=== PATIENT | male | born 1945 | race Caucasian/White ===

== ENCOUNTER 2020-07-12 06:38 | Observation (INO) | payer MEDICARE ==
[2020-07-09 08:30] VITALS: BMI 33.0
[~2020-07-12 06:38] MED LIST: DEXAMETHASONE SOD PHOSPHATE 4 MG/ML 1 ML VIAL IV ONE; LACTATED RINGERS 1,000 ML IV SCH; LIDOCAINE 1% (10MG/ML) FOR IV START INTRADERMA PRN; ONDANSETRON 4 MG/2 ML VIAL IVP ONE; SODIUM CHLORIDE 0.9% 1,000 ML IV SCH
[2020-07-12] MEDS ORDERED: SODIUM CHLORIDE 0.9% 1,000 ML IV ONE (07:20)
[2020-07-12] MEDS ORDERED: PHENYLEPHRINE-0.9% NACL SYG 1,000 MCG/10 ML SYRINGE ONE (08:44)
[2020-07-12] MEDS ORDERED: MIDAZOLAM 2 MG/2 ML VIAL ONE (08:44)
[2020-07-12] MEDS ORDERED: SUCCINYLCHOLINE CHLORIDE VIAL 200 MG/10 ML VIAL IV ONE (08:44)
[2020-07-12] MEDS ORDERED: ROCURONIUM 10 MG/ML (5 ML VIAL) IV ONE (08:44)
[2020-07-12] MEDS ORDERED: fentaNYL (PF) 50 MCG/ML 2 ML AMP ONE (08:44)
[2020-07-12] MEDS ORDERED: PROPOFOL 10 MG/ML 20 ML VIAL IV ONE (08:44)
[2020-07-12] MEDS ORDERED: GLYCOPYRROLATE 0.2 MG/ML 2 ML VIAL ONE (08:44)
[2020-07-12] MEDS ORDERED: ONDANSETRON 4 MG/2 ML VIAL ONE (08:44)
[2020-07-12] MEDS ORDERED: NEOSTIGMINE 1 MG/ML 10 ML VIAL ONE (08:44)
[2020-07-12] MEDS ORDERED: DEXAMETHASONE SOD PHOSPHATE 4 MG/ML 1 ML VIAL ONE (08:44)
[2020-07-12] MEDS ORDERED: PROTAMINE SULFATE 10 MG/ML 5 ML VIAL IV ONE (08:44)
[2020-07-12] MEDS ORDERED: LIDOCAINE 1% INJ 10MG/ML (20 ML MDV) ONE (08:44)
[2020-07-12] MEDS ORDERED: ISOPROTERENOL 250 MCG/1.25 ML SYR IV ONE (08:44)
[2020-07-12] MEDS ORDERED: HEPARIN SODIUM,PORCINE 10,000 UNIT/ML 1 ML VIAL ONE (08:44)
[2020-07-12] MEDS ORDERED: LIDOCAINE 1% INJ 10MG/ML (20 ML MDV) SQ ONE (09:35)
[2020-07-12] MEDS ORDERED: HEPARIN SOD,PORK IN 0.45% NACL 25,000 UNIT in 0.45% NACL 1 250ML.BAG IV ONE (09:40)
[2020-07-12] MEDS ORDERED: IOPAMIDOL-370 100ML BTL INJ ONE (11:29)
[2020-07-12] MEDS ORDERED: HEPARIN SODIUM (1,000 UNIT/ML) 1,000 UNIT in SODIUM CHLORIDE 0.9% 1,000 ML IRRIGATION ONE (11:30)
[2020-07-12] MEDS ORDERED: ACETAMINOPHEN TAB 325 MG TAB PO PRN (14:08)
[2020-07-12] MEDS ORDERED: ACETAMINOPHEN IV (For NPO) 1,000 MG in EMPTY BAG 1 BAG IVPB ONE (15:00)
--- NOTE | 2020-07-12 15:10 | P.EPPROC ---
- EP Procedure Note Electrophysiology Procedure Note: PROCEDURE A. fib ablation with Pulmonary vein isolation (PVI) Linear ablation in the LA septum Linear ablation in the roof of the left atrium Linear ablation in the mitral annulus DIAGNOSIS Atrial fibrillation, symptomatic, refractory to therapy Persistent Failed flecainide RESULT No left atrial appendage mass seen on intracardiac echo Successful A. fib ablation/pulmonary vein isolation of all veins using cryo- ablation Complete entrance block in all 4 veins confirmed No evidence for phrenic nerve injury Linear ablation in the septum the left atrium along complex fractionated electrograms Linear ablation in the roof of the left atrium Linear ablation the mitral isthmus Esophageal deflection YES Electrical cardioversion with a synchronized shock across the chest YES PROCEDURE DETAILS Patient was brought to the EP lab in a fasting state. Written informed consent was obtained prior to the procedure. Procedure performed under general anesthesia After initial muscle relaxant use, muscle relaxants were not given thereafter in order to assess phrenic nerve during procedure. Patient prepped and draped as per protocol Full cryo-set up with standard preparation of the cryoablation tools done. Femoral Venous access obtained on the right and left groins Venous and arterial Sheaths placed. Diagnostic catheters for the high right atrium, phrenic nerve stimulation and pacing, His bundle, RV and coronary sinus placed Intracardiac echo catheter placed. Long sheath placed in the right atrium Left and right transseptal catheterization performed under intracardiac echo guidance. Intravenous heparin with aCT above 300 Later, catheter positioning and balloon positioning in the left atrium, under intracardiac echo guidance Femoral arterial line placed for hemodynamic monitoring and sampling Diagnostic EP study with Drug infusion Coronary sinus pacing and recording Baseline measurements Sinus cycle length 863 ms, OH interval 187 ms, QRS 82 ms and QT 378 ms AH 78 ms and HV interval 54 minutes Transseptal catheterization performed RA pressure 21/16/18 LA pressure 34/13/23 Transseptal catheterization performed with standard sheath. The cryoablation sheath was then placed with an over the wire exchange without any acute complications. All 4 pulmonary veins were isolated in the following sequence: Left superior followed by left inferior followed by right superior followed by right inferior The cryo-ablation balloon was placed at the os of each vein 1.5 mL of IV dye was injected to confirm an occluded vein Goal during cryoablation was to achieve complete occlusion of the pulmonary vein, achieve -30 degrees C at 30 seconds and achieve -40 degrees C at 60 seconds and a time to effect of less than 60-90 seconds, . If not the balloon was repositioned to obtain this result After completion of Cryoblation with durations from 180-240 seconds, entrance block was confirmed with the Attain circular catheter in a roving fashion around the antrum of the pulmonary veins Phrenic nerve pacing was performed from the SVC, right innominate vein area and diaphragm voltage was monitored. Diaphragmatic contractions were also monitored manually for strength of contraction. Parameter goals for each cryo freeze Complete occlusion of the appropriate vein -30 degrees C by 30 seconds -40 degrees C by 60 seconds Minimum between minus 40-55 degrees C Thaw time greater than 10 seconds Balloon visualized by intracardiac echo The esophagus was intubated. Esophageal Temperature monitoring with a CIRCA catheter formed. Esophageal deflection for hypothermia of the esophagus below 30 degrees C Left superior pulmonary vein Complete isolation, entrance block Left inferior pulmonary vein Complete isolation, entrance block Right superior pulmonary vein, during phrenic nerve pacing Complete isolation, entrance block Right inferior pulmonary vein, during phrenic nerve pacing Complete isolation, entrance block At the end of the procedure the Achieve catheter was once again used to check for entrance block Phrenic nerve stimulation was performed to confirm diaphragmatic stimulation the end of the procedure Cine fluoroscopy was performed at the very end of the procedure to confirm movement of both diaphragms with inspiration and expiration RF ablation catheter placed in the left atrium 3-D electrograms mapping of the left atrium performed Voltage mapping performed Coronary veins are completely isolated Fractionated electrograms noted in the septum Linear ablation and septum performed from the upper anterior Isuprel pulmonary vein down to the right inferior pulmonary vein This segment of the septum posterior to this was completely isolated Linear ablation in the roof was performed. There was about a 1-1.5 cm narrow isthmus noted and complete RF ablation was performed Scar mapping in sinus rhythm showed complete line of block with non-capture There was relative organization of atrial fibrillation and a very rapid signals in the mitral isthmus Different decision was made to perform ablation within the mitral isthmus A complete anatomic line of block was made. A contact force of around 7-15 g, power of 35-40 W However when interrogated in sinus rhythm complete block could not be achieved and there appeared to be a gap In the mitral annulus region Widely split potentials along the region closer to the left inferior pulmonary vein Electrical cardioversion was performed at the end of the procedure At the end of the procedure the patient was extubated Heparin was reversed Venous sheaths were removed and hemostasis assured PROCEDURES PERFORMED Diagnostic EP study CS pacing and recording Left and right transseptal catheterization 3D mapping) Intracardiac echocardiography Pulmonary vein isolation with transseptal and comprehensive EPS, 24022 Left atrial roof line, +[id number] Linear ablation, left atrium, +44110 Linear ablation mitral annulus, +12743 Electrical cardioversion with a synchronized shock across the chest [id number]
[2020-07-12] MEDS: HYDROcodone/APAP 5-325MG 1 EACH TAB PO PRN (17:43)
[2020-07-12] MEDS: APIXABAN 5 MG TAB PO SCH (20:55)
[2020-07-12] MEDS: METOPROLOL TARTRATE 50 MG TAB PO SCH (20:55)
[2020-07-13] MEDS: HYDROcodone/APAP 5-325MG 1 EACH TAB PO PRN (01:58)
[2020-07-13] MEDS: SODIUM CHLORIDE 0.9% 1,000 ML IV SCH ×3 (05:47→22:00)
--- NOTE | 2020-07-13 08:09 | P.DS ---
Providers Attending physician: Cale Rodriguez Primary care physician: Corky Calvo [facility] Course: Patient is lying comfortably in bed. No orthopnea PND He has no chest discomfort that he has a sore throat and he has a cough and astatic clear his throat He had bleeding from the right groin and a repeat FemStop was placed The right groin is very minimally puffy but there is minimal tenderness at the venous puncture site no tenderness in the arterial puncture site no definite swelling Heart sounds are regular and normal Breath sounds fine crackles at the bases No lower extremity edema Impression Persistent atrial fibrillation Status post PVI, linear ablation the septum LA roof and mitral isthmus Patient required electrical cardioversion for relatively organized atrial fibrillation He did not otherwise into a mappable atrial tachycardia Plan Continue current medications without any changes including anticoagulation Intermittent bedrest with right groin pressure application with a FemStop today Likely discharge if there is no further bleeding later today Follow Dr. Rodriguez in 7-10 days Incentive spirometer 1 dose of by mouth Lasix 40 mg daily Plan - Discharge Summary Discharge Rx Participant: No New Discharge Prescriptions: Continue Spironolactone [Aldactone] 25 mg PO DAILY Losartan [Cozaar] 25 mg PO DAILY Atorvastatin [Lipitor] 20 mg PO DAILY Apixaban [Eliquis] 5 mg PO BID Metoprolol Tartrate [Lopressor] 50 mg PO BID Glucosamine Sulfate 2,000 mg PO DAILY Discharge Medication List Apixaban [Eliquis] 5 mg PO BID 11/21/13 [History] Atorvastatin [Lipitor] 20 mg PO DAILY 11/21/13 [History] Losartan [Cozaar] 25 mg PO DAILY 11/21/13 [History] Spironolactone [Aldactone] 25 mg PO DAILY 11/21/13 [History] Glucosamine Sulfate 2,000 mg PO DAILY 07/09/20 [History] Metoprolol Tartrate [Lopressor] 50 mg PO BID 07/09/20 [History] Follow up Appointment(s)/Referral(s): Cale Rodriguez MD [STAFF PHYSICIAN] - 2 Weeks (Follow-up with Dr. Rodriguez/Liliana Zelaya in 2 weeks) Activity/Diet/Wound Care/Special Instructions: Post EP study - Ablation instructions 1. Keep access sites dry for 2 days. 2. No heavy lifting or straining for 2 days. 3. Avoid bending the hips repeatedly for 2 days. 4. You may go up and down stairs slowly Call if the following is noted 1. Bleeding, increasing swelling or pain at the access sites. 2. Increasing chest discomfort, especially upon taking a deep breath. 3. Increasing shortness of breath, at rest or with exertion. 4. Undue cough / phlegm 5. Difficulty or pain while swallowing. 6. Pain or change in color in the extremities. 7. Fever, chills, rigors. 8. Increasing headache or neurologic symptoms. 9. Dizziness, fainting, palpitations No change in medications Continue apixaban Discharge Disposition: HOME SELF-CARE
[2020-07-13] MEDS ORDERED: FUROSEMIDE 40 MG TAB PO STA (08:47)
[2020-07-13] MEDS: ATORVASTATIN 20 MG TAB PO SCH (09:03)
[2020-07-13] MEDS: METOPROLOL TARTRATE 50 MG TAB PO SCH ×2 (09:03→21:54)
[2020-07-13] MEDS: SPIRONOLACTONE 25 MG TAB PO SCH (09:04)
[2020-07-13] MEDS: LOSARTAN 25 MG TAB PO SCH (09:04)
[2020-07-13] MEDS: APIXABAN 5 MG TAB PO SCH ×2 (09:04→21:54)
[2020-07-14] MEDS: SPIRONOLACTONE 25 MG TAB PO SCH (07:25)
[2020-07-14] MEDS: METOPROLOL TARTRATE 50 MG TAB PO SCH (07:25)
[2020-07-14] MEDS: LOSARTAN 25 MG TAB PO SCH (07:25)
[2020-07-14] MEDS: ATORVASTATIN 20 MG TAB PO SCH (07:25)
[2020-07-14] MEDS: APIXABAN 5 MG TAB PO SCH (07:25)
[2020-07-14 07:28] VITALS: BP 118/69; RESP 16; TEMP 98.6
[2020-07-14 09:05] VITALS: PULSE 79
--- NOTE | 2020-07-14 17:51 | DS ---
DISCHARGE SUMMARY DATE OF ADMISSION: 07/13/2020 DATE OF DISCHARGE: 07/14/2020. DIAGNOSIS: Persistent atrial fibrillation. PROCEDURE PERFORMED: From bilateral groin approach pulmonary vein isolation and related procedures by Dr. Rodriguez. This patient was brought in for elective pulmonary vein isolation procedure that was performed from both groins. Post procedure, he had some hematoma which has settled down. He is asymptomatic, maintaining sinus rhythm. Vitals are stable. There is no JVD or carotid bruit. S1-S2 heard normally. No significant murmurs. Lungs are clear. Abdomen is soft. Lower extremities reveal palpable pulses. The right groin has a small area of ecchymosis, no significant hematoma, no bruit. Left groin is clean and dry with a good pulse. This patient is maintaining sinus rhythm. He can be discharged today. Discharge instructions regarding activity, diet and medications were given. He will see Dr. Rodriguez in 1 week. MMODL / IJN: [id number] /
== END 2020-07-14 12:59 | disposition home or self-care (01) ==
LOC: CATHEP 06:38 → 6NMEDSUR 14:10 → CATHEP 07-14 07:25 → 6NMEDSUR 07-14 07:25
PROVIDERS: ADMIT Internal Medicine Clinical Cardiac Electrophysiology; ATTEND Internal Medicine Clinical Cardiac Electrophysiology
DX: I48.19 Other persistent atrial fibrillation (principal); I11.0 Hypertensive heart disease with heart failure; I42.9 Cardiomyopathy, unspecified; G47.33 Obstructive sleep apnea (adult) (pediatric); E78.5 Hyperlipidemia, unspecified; I77.9 Disorder of arteries and arterioles, unspecified; F17.210 Nicotine dependence, cigarettes, uncomplicated; Z20.822 Contact with and (suspected) exposure to COVID-19; Z79.01 Long term (current) use of anticoagulants; Z79.899 Other long term (current) drug therapy
CPT/HCPCS: 93623; 93662; 93613; 93656; 93657; 87635; G0378; C1759; C1769 ×4; C1894 ×3; C1730 ×2; C1893; C1733; C1766; C1732; J2250; J0330; J2720; J1644 ×3; J1100; J2710; J2405; J2001; J3010; J2370; J2704; Q9967

== ENCOUNTER → 2022-04-03 | Outpatient (CLI) | payer MEDICARE ==
--- NOTE | 2022-04-03 15:41 | P.SLEEP ---
History of Present Illness DATE: 04/03/2022 CONSULTATION/NEW PATIENT EVALUATION HISTORY OF PRESENT ILLNESS/SLEEP-WAKE EVALUATION: 76-year-old gentleman had been evaluated in the sleep center for obstructive sleep apnea hypopnea syndrome. Patient has history of obstructive sleep apnea-hypopnea syndrome for more than 10 years. Last time she was seen in our institution according to patient in the 2017. He continued to use CPAP equipment but presently has multiple awakenings from sleep well using his CPAP. SLEEP SCHEDULE: Usually sleep schedule from 9 PM to 6 AM 7 days a week. FALLING ASLEEP: Occasionally patient has difficulties to fall asleep, no TV in bedroom. DURING SLEEP: Patient wakes up from sleep 5 times with 5 episodes of nocturia wh ile using his CPAP. No history of hypnogogical hallucinations, sleep paralysis, or cataplexy. DURING THE DAY/WAKE STATE: In the morning patient wake up tired, falling asleep during the day. [place] sleepiness scale is 3. Patient takes 1 nap at 1 PM. She drinks 2 cups of coffee during the day. PAST MEDICAL HISTORY: Hypertension, atrial fibrillation. PAST SURGICAL HISTORY: Cardiac ablation in 2020 for atrial fibrillation, surgery for GERD. MEDICATIONS: Eliquis 5 mg twice a day, atorvastatin 20 mg once a day, spironolactone 25 mg once a day, losartan 50 mg once a day. SOCIAL HISTORY: Negative for smoking, alcohol consumption occasional. FAMILY HISTORY: Heart problems. REVIEW OF SYSTEMS: Multiple awakenings from sleep. No fevers. No double vision. No recent chest pain. No shortness of breath. No abdominal pain. No bleeding episodes. No blood in urine. No seizure episodes. PHYSICAL EXAMINATION: GENERAL: A pleasant patient without any distress. VITAL SIGNS: BP 144/80 , HR 74 , RR 18 , weight 248.0 pounds, height 5 foot 8.5 inches, body mass index 37.1 . HEENT: PERRLA, EOMI. Evaluation of oropharynx showed tongue protrudes midline, low position of soft palate Mallampati 4. NECK: Supple. No JVD. Thyroid is not palpable. 19.75 inches in circumference. LUNGS: Clear to percussion and to auscultation. Good air exchange. No wheezing or rhonchi. HEART: S1, S2 regular. No murmurs, gallops or rubs. ABDOMEN: Soft and nontender. Bowel sounds are present. No organomegaly appreciated. EXTREMITIES: No clubbing or cyanosis. WATER FILTERER HELPER: Awake, alert, and oriented x3. Cranial nerves 2 to 7 intact. There is no fasciculation or atrophy noted. No focal deficits observed. ASSESSMENT: 1. Obstructive sleep apnea hypopnea syndrome for many years. Patient increased his weight on 28 pounds since previous evaluation in sleep center. Multiple awakenings from sleep while on treatment with CPAP. CPAP unit more than 5-year-old. Extremely low position of soft palate, wide neck. 2. Obesity body mass index 37.1. 3. Hypertension. 4. History of atrial fibrillation, status post cardiac ablation procedure. 5 status post surgery for GERD. PLAN: 1. To get results of previous sleep studies. 2. CPAP/BiPAP titration for correction of obstructive sleep apnea-hypopnea syndrome at the present time. 3. Preferable position during sleep on the side. 4. No driving if patient feels any sleepiness. Patient is aware of civil and criminal liability for unsafe driving. 5. Sleep hygiene with regular sleep time for at least 7.5-8 hours. 6. Watching and losing weight. 7. Prescription for new CPAP equipment after sleep study. Thank you very much for referring this patient for consultation. Sincerely, Magen Bruner MD, PhD, FAASM. 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" History of Any Multi-Drug Resistant Organisms: None Reported Past Surgical History: Heart Catheterization, Tonsillectomy Additional Past Surgical History / Comment(s): CARDIOVERSION, had 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, rt eye cataract sx Past Anesthesia/Blood Transfusion Reactions: No Reported Reaction Past Psychological History: No Psychological Hx Reported Smoking Status: Former smoker Past Alcohol Use History: Occasional Additional Past Alcohol Use History / Comment(s): QUIT SMOKING 1969, STARTED APPROX 1956 Past Drug Use History: None Reported - Past Family History Father Family Medical History: Cancer Mother Family Medical History: No Reported History Medications and Allergies Home Medications Medication Instructions Recorded Confirmed Type Apixaban [Eliquis] 5 mg PO BID 11/21/13 07/12/20 History Atorvastatin [Lipitor] 20 mg PO DAILY 11/21/13 07/12/20 History Losartan [Cozaar] 25 mg PO DAILY 11/21/13 07/12/20 History Spironolactone [Aldactone] 25 mg PO DAILY 11/21/13 07/12/20 History Glucosamine Sulfate 2,000 mg PO DAILY 07/09/20 07/12/20 History Metoprolol Tartrate [Lopressor] 50 mg PO BID 07/09/20 07/12/20 History Allergies Allergy/AdvReac Type Severity Reaction Status Date / Time No Known Allergies Allergy Verified 07/12/20 07:38 Sleep Note - Sleep Note Sleep Note: Temperature: Pulse Rate: Respiratory Rate: Blood Pressure: SpO2: Height: Weight: BMI: Neck Circumference:
== END ==
LOC: SLEEP 14:37
PROVIDERS: ATTEND Internal Medicine
DX: G47.33 Obstructive sleep apnea (adult) (pediatric) (principal); Z99.89 Dependence on other enabling machines and devices; E66.9 Obesity, unspecified; Z68.37 Body mass index [BMI] 37.0-37.9, adult; I11.0 Hypertensive heart disease with heart failure; I48.91 Unspecified atrial fibrillation; Z87.19 Personal history of other diseases of the digestive system; Z87.891 Personal history of nicotine dependence
CPT/HCPCS: 99211

== ENCOUNTER → 2024-01-06 | Outpatient (CLI) | payer MEDICARE ==
[2024-01-06 15:26] VITALS: BP 134/69; PULSE 74; RESP 16; TEMP 97.8
--- NOTE | 2024-01-06 18:51 | P.PROGSL ---
Subjective DATE: 01/06/2024 FOLLOW UP VISIT. Patient with obstructive sleep apnea hypopnea syndrome return to sleep center for follow-up visit. Information from previous visit have been reviewed. Patient is using PAP equipment every night for the whole night, getting PAP supplies in time. The patient does not have significant problems with the mask, PAP unit and humidification. [place] sleepiness scale is 7, which is normal. I checked information from PAP unit. PAP unit pressure 6-10, average 10 cm H2O. Usage is 100% for more then 4 hours, average 8.6 hours per night. Leak is 17 l/m, which is in acceptable range. Apnea Hypopnea Index is 1.0, which is normal. MEDICATIONS have been reviewed, please see below. During physical exam: GENERAL: A pleasant patient without any distress. VITAL SIGNS: Please see below, weight is 144 lbs. HEENT: PERRLA, EOMI.low position of soft palate, Mallapati 4 . NECK: Supple. No JVD. LUNGS: Clear to percussion and to auscultation. Good air exchange. No wheezing or rhonchi. HEART: S1, S2 regular. ABDOMEN: Soft and nontender.[] EXTREMITIES: No clubbing or cyanosis. FIRST LINE PRODUCTION SUPERVISOR: Awake, alert, and oriented x3. No focal deficit. Impressions: 1. Obstructive sleep apnea-hypopnea syndrome. Patient demonstrated great compliance with treatment, benefiting from treatment. 2. Obesity, body mass index 37.0, patient lost 4 pounds comparing with the previous visit. 3. Hypertension. 4. History of atrial fibrillation, status post cardiac ablation. 5. Status post surgical treatment for GERD. Plan: 1. Continue using PAP equipment every night for the whole night. 2. Sleep hygiene with regular time in bed for at least 7.5-8 hours 3. PAP unit should stay lower then position of the head. 4. Advised patient to remove all remaining water from humidifier canister daily and make it dry after each usage. Refill canister with fresh distilled water before each usage. 5. Watching weight. 6. Precautions related to driving. No driving if feel any sleepiness. 7. I will maintain prescription for PAP supplies including mask, tube, filters. 8. Follow up visit in 8 months or earlier if patient has any problems. Thank you very much for allowing me to participate in the management of your patient. Magen Bruner MD, PhD, FAASM. Diplomat of [employer], Sleep Medicine Board by [employer] [place] [employer] [facility] [place] Objective - Vital Signs Vital Signs: Vital Signs Temp 97.8 F 01/06/24 15:25 Pulse 74 01/06/24 15:25 Resp 16 01/06/24 15:25 BP 134/69 01/06/24 15:25 Pulse Ox 98 01/06/24 15:25 FiO2 Intake & Output 01/05/24 01/06/24 01/06/24 18:59 06:59 18:59 Weight 110.677 kg Home Medications: Home Medications Medication Instructions Recorded Confirmed Type Apixaban [Eliquis] 5 mg PO BID 11/21/13 01/06/24 History Atorvastatin [Lipitor] 20 mg PO DAILY 11/21/13 01/06/24 History Losartan [Cozaar] 25 mg PO DAILY 11/21/13 01/06/24 History Spironolactone [Aldactone] 25 mg PO DAILY 11/21/13 01/06/24 History Glucosamine Sulfate 2,000 mg PO DAILY 07/09/20 07/12/20 History Metoprolol Tartrate [Lopressor] 50 mg PO BID 07/09/20 07/12/20 History
== END ==
LOC: 3 N SLEEP 15:03
PROVIDERS: ATTEND Internal Medicine
CPT/HCPCS: 99212

== ENCOUNTER → 2024-09-14 | Outpatient (CLI) | payer MEDICARE ==
[2024-09-14 11:07] VITALS: BP 139/77; PULSE 70; RESP 12; TEMP 97.8
--- NOTE | 2024-09-14 11:39 | P.PROGSL ---
Subjective DATE: 09/14/2024 FOLLOW UP VISIT. Patient with obstructive sleep apnea hypopnea syndrome return to sleep center for follow-up visit. Information from previous visit have been reviewed. Patient is using PAP equipment every night for the whole night, getting PAP supplies in time. The patient does not have significant problems with the mask, PAP unit and humidification. [place] sleepiness scale is 5, which is normal. I checked information from PAP unit. PAP unit pressure 6-15, average 11 cm H2O. Usage is 100% for more then 4 hours, average 8 hours per night. Leak is 22 l/m, which is in acceptable range. Apnea Hypopnea Index is 0.6, which is normal. MEDICATIONS have been reviewed, please see below. During physical exam: GENERAL: A pleasant patient without any distress. VITAL SIGNS: Please see below, weight is 239.4 lbs. HEENT: PERRLA, EOMI.low position of soft palate, Mallapati 4 . NECK: Supple. No JVD. LUNGS: Clear to percussion and to auscultation. Good air exchange. No wheezing or rhonchi. HEART: S1, S2 regular. ABDOMEN: Soft and nontender.[] EXTREMITIES: No clubbing or cyanosis. NICKER AND BREAKER: Awake, alert, and oriented x3. No focal deficit. Impressions: 1. Obstructive sleep apnea-hypopnea syndrome. Patient demonstrated great compliance with treatment, benefiting from treatment. 2. Obesity, BMI 36.3, patient lost 5 pounds comparing with previous visit. 3. Hypertension. 4. History of atrial fibrillation, status post cardiac ablation, regular rhythm by auscultation at the present time. 5. History of GERD, status post surgical treatment. Plan: 1. Continue using PAP equipment every night for the whole night. 2. Sleep hygiene with regular time in bed for at least 7.5-8 hours 3. PAP unit should stay lower then position of the head. 4. Advised patient to remove all remaining water from humidifier canister daily and make it dry after each usage. Refill canister with fresh distilled water before each usage. 5. Watching and continue losing weight. 6. Precautions related to driving. No driving if feel any sleepiness. 7. I will maintain prescription for PAP supplies including mask, tube, filters. 8. Follow up visit in 8 months or earlier if patient has any problems. Thank you very much for allowing me to participate in the management of your patient. Magen Bruner MD, PhD, FAASM. Diplomat of [place], Sleep Medicine Board by [place] Medicine [employer] [facility] [place] Objective - Vital Signs Vital Signs: Vital Signs Temp 97.8 F 09/14/24 11:06 Pulse 70 09/14/24 11:06 Resp 12 09/14/24 11:06 BP 139/77 09/14/24 11:06 Pulse Ox 96 09/14/24 11:06 FiO2 Intake & Output 09/13/24 09/14/24 09/14/24 18:59 06:59 18:59 Weight 108.409 kg Home Medications: Home Medications Medication Instructions Recorded Confirmed Type Apixaban [Eliquis] 5 mg PO BID 11/21/13 01/06/24 History Atorvastatin [Lipitor] 20 mg PO DAILY 11/21/13 01/06/24 History Losartan [Cozaar] 25 mg PO DAILY 11/21/13 01/06/24 History Spironolactone [Aldactone] 25 mg PO DAILY 11/21/13 01/06/24 History Glucosamine Sulfate 2,000 mg PO DAILY 07/09/20 07/12/20 History Metoprolol Tartrate [Lopressor] 50 mg PO BID 07/09/20 07/12/20 History
== END ==
LOC: 3 N SLEEP 10:51
PROVIDERS: ATTEND Internal Medicine
DX: G47.33 Obstructive sleep apnea (adult) (pediatric) (principal); E66.9 Obesity, unspecified; Z68.36 Body mass index [BMI] 36.0-36.9, adult; I10 Essential (primary) hypertension; Z98.890 Other specified postprocedural states; Z86.79 Personal history of other diseases of the circulatory system; Z87.19 Personal history of other diseases of the digestive system; Z99.89 Dependence on other enabling machines and devices; Z87.891 Personal history of nicotine dependence
CPT/HCPCS: 99212